=== PATIENT | female | born 1995 | race Hispanic/Latino ===

== ENCOUNTER 2018-10-25 20:46 | Emergency (ER) | payer OTHER ==
--- NOTE | 2018-10-25 21:16 | ED PDOC ---
HPI: Psych/Substance Abuse Chief Complaint (Nursing): Psychiatric Evaluation Chief Complaint (Provider): Psychiatric Evaluation History Per: Patient History/Exam Limitations: no limitations Additional Complaint(s): Patient is a 23 year old female who presents to the emergency department for psychiatric evaluation. She reports to have a history of depression and anxiety. Patient reports this past March she lost her 2 year old niece to brain cancer and this past April she lost her mother to suicide. She is currently on no medications and has no psychiatrist. Patient reports that today she was talking to her friend and stated she wanted to be with her mother. Her friend was concerned the patient was having suicidal ideation and called EMS. Patient denies current SI, HI and hallucinations. As per EMS, they found exchanges in the patient's phone that pertain to suicide. She further reports she has hurt herself in the past but has not done it within the last year. No physical complaints. PMD: none Past Medical History Reviewed: Historical Data, Nursing Documentation, Vital Signs Vital Signs: Last Vital Signs Temp 98.3 F 10/25/18 20:47 Pulse 100 H 10/25/18 20:47 Resp 16 10/25/18 20:47 BP 128/83 10/25/18 20:47 Pulse Ox 98 10/25/18 20:47 - Medical History PMH: Anxiety, Depression - Surgical History Surgical History: Appendectomy - Family History Family History: States: Unknown Family Hx - Allergies Allergies/Adverse Reactions: Allergies Allergy/AdvReac Type Severity Reaction Status Date / Time No Known Allergies Allergy Verified 10/25/18 20:50 Review of Systems ROS Statement: Except As Marked, All Systems Reviewed And Found Negative Psych: Negative for: Suicidal ideation (homicidal ideation), Other (hallucinations) Physical Exam - Reviewed Nursing Documentation Reviewed: Yes Vital Signs Reviewed: Yes - Physical Exam Comments: GENERAL APPEARANCE: Patient is awake, alert, oriented x 3, crying. SKIN: Warm, dry; (-) cyanosis ENMT: Mucous membranes moist. Airway patent: (-) stridor. NECK: Supple, FROM HEART AND CARDIOVASCULAR: (-) irregularity CHEST AND RESPIRATORY: (-) rales, (-) rhonchi, (-) wheezes; breath sounds equal. Respirations even and nonlabored. ABDOMEN: Soft, (-) distention, (-) tenderness, (-) guarding. NEURO AND PSYCH: Mental status as above. Affect: depressed. (-) facial asymmetry. Gait: steady. Speech: clear. - Laboratory Results Result Diagrams: 10/25/18 22:26 10/25/18 22:26 Urine POC: Negative - ECG O2 Sat by Pulse Oximetry: 98 (RA) Pulse Ox Interpretation: Normal Medical Decision Making Medical Decision Making: Time: 21:05 Impression: psychiatric evaluation Plan: --Crisis evaluation --Alcohol Serum 2145 Serum Alcohol: 102 Per crisis evaluation, patient to be admitted per Dr Billy for Depression. CBC, CMP, Upreg, U/A, and urine drug screen ordered. 2250 CBC and CMP grossly unremarkable. 2355 Upreg: negative U/A: (+) UTI. MAcrobid 100mg PO ordered. Patient is medically stable for psychiatric admission. Vitals stable. Scribe Attestation: Documented by Ventura Lazar, acting as a scribe for Tg Dyer Provider Scribe Attestation: All medical record entries made by the Scribe were at my direction and personally dictated by me. I have reviewed the chart and agree that the record accurately reflects my personal performance of the history, physical exam, medical decision making, and the department course for this patient. I have also personally directed, reviewed, and agree with the discharge instructions and disposition. Disposition - Clinical Impression Clinical Impression: Depression, UTI (urinary tract infection) - Patient ED Disposition Is Patient to be Admitted: Yes Counseled Patient/Family Regarding: Studies Performed, Diagnosis - Disposition Disposition Time: 23:55 Condition: STABLE - Pt Status Changed To: Hospital Disposition Of: Inpatient - Admit Certification Admit to Inpatient:: After my assessment, the patient will require hospitalization for at least two midnights. This is because of the severity of symptoms shown, intensity of services needed, and/or the medical risk in this patient being treated as an outpatient. - POA Present On Arrival: None Results - Lab Results Lab Results: 10/25/18 10/25/18 10/25/18 22:26 22:26 21:19 WBC 7.8 RBC 4.25 Hgb 12.8 Hct 38.4 MCV 90.4 MCH 30.0 MCHC 33.2 RDW 12.2 Plt Count 276 MPV 7.1 L Neut % (Auto) 56.8 Lymph % (Auto) 35.4 [place] % (Auto) 6.0 Eos % (Auto) 0.9 Baso % (Auto) 0.9 Neut # (Auto) 4.4 Lymph # (Auto) 2.8 [place] # (Auto) 0.5 Eos # (Auto) 0.1 Baso # (Auto) 0.1 Sodium 143 Potassium 3.8 Chloride 109 H Carbon Dioxide 23 Anion Gap 15 BUN 8 Creatinine 0.8 Est GFR ( Amer) > 60 Est GFR (Non-Af Amer) > 60 Random Glucose 145 H Calcium 8.9 Total Bilirubin 0.1 L AST 27 ALT 19 Alkaline Phosphatase 42 Total Protein 6.9 Albumin 3.9 Globulin 3.1 Albumin/Globulin Ratio 1.3 Alcohol, Quantitative 102 H
[2018-10-25 22:31] LABS: BASO # 0.1 K/uL (0.0-0.2); BASO % 0.9 % (0.0-2.0); EOS # 0.1 K/uL (0.0-0.7); EOS % 0.9 % (0.0-4.0); HEMOGLOBIN 12.8 g/dL (12.0-16.0); LYMPH # 2.8 K/uL (1.0-4.3); LYMPH % 35.4 % (20.0-40.0); MEAN CELL VOLUME 90.4 fl (81.0-99.0); MEAN CORPUSCULAR HGB CONC 33.2 g/dL (33.0-37.0); MEAN PLATELET VOLUME 7.1 fl (7.2-11.7); MONO # 0.5 K/uL (0.0-0.8); NEUT # 4.4 K/uL (1.8-7.0); NEUT % 56.8 % (50.0-75.0); NRBC % 0.1 % (0.0-0.0); RBC 4.25 Mil/uL (3.80-5.20); RED CELL DISTRIBUTION WIDTH 12.2 % (11.5-14.5); WHITE BLOOD COUNT 7.8 K/uL (4.8-10.8)
[2018-10-25 22:38] LABS: ALB/GLOB RATIO 1.3 (1.0-2.1); ALBUMIN 3.9 g/dL (3.5-5.0); ALT/SGPT 19 U/L (9-52); AST/SGOT 27 U/L (14-36); BLOOD UREA NITROGEN 8 mg/dl (7-17); CALCIUM 8.9 mg/dL (8.4-10.2); GFR NON-AFRICAN AMERICAN > 60
[2018-10-25 23:47] LABS: SQUAMOUS EPITHIAL 9 /hpf (0-5); URINE BACTERIA OCC (<OCC); URINE BILIRUBIN NEGATIVE (NEGATIVE); URINE BLOOD LARGE (NEGATIVE); URINE CLARITY CLOUDY (Clear); URINE COLOR YELLOW (YELLOW); URINE GLUCOSE (UA) NEG (NEGATIVE); URINE LEUKOCYTE ESTERASE SMALL Leu/uL (Negative); URINE PROTEIN 30 mg/dL (NEGATIVE); URINE UROBILINOGEN 0.2-1.0 mg/dL (0.2-1.0)
[2018-10-26 00:12] LABS: BARBITURATES, UR NEGATIVE (NEGATIVE); BENZODIAZEPINES, UR NEGATIVE (NEGATIVE); OPIATES, UR NEGATIVE (NEGATIVE); PHENCYCLIDINE, UR NEGATIVE (NEGATIVE)
--- NOTE | 2018-10-26 07:21 | ED PDOC ---
- Laboratory Results Result Diagrams: 10/25/18 22:26 10/25/18 22:26 Urine POC: Negative - ECG O2 Sat by Pulse Oximetry: 100 Medical Decision Making Medical Decision Makin:00 Patient is signed out to me by Paramjit Winchester MD pending [facility] [place]. Scribe Attestation: Documented byTg Pittman, acting as a scribe for Charlotte Roberto MD. Provider Scribe Attestation: All medical record entries made by the Scribe were at my direction and personally dictated by me. I have reviewed the chart and agree that the record accurately reflects my personal performance of the history, physical exam, medical decision making, and the department course for this patient. I have also personally directed, reviewed, and agree with the discharge instructions and disposition. Disposition Doctor Will See Patient In The: Office Counseled Patient/Family Regarding: Diagnosis, Need For Followup - Clinical Impression Clinical Impression: Depression, UTI (urinary tract infection) - POA Present On Arrival: None - Disposition Disposition: Routine/Home Disposition Time: 12:00 Condition: IMPROVED Instructions: Asymptomatic Bacteriuria Forms: Your Policy Manager (Ukrainian)
--- NOTE | 2018-10-26 08:58 | RAD ---
Date of service: 10/26/2018 HISTORY: psych COMPARISON: No prior. FINDINGS: LUNGS: No active pulmonary disease. PLEURA: No significant pleural effusion identified, no pneumothorax apparent. CARDIOVASCULAR: No aortic atherosclerotic calcification present. Normal cardiac size. No pulmonary vascular congestion. OSSEOUS STRUCTURES: No significant abnormalities. VISUALIZED UPPER ABDOMEN: Normal. OTHER FINDINGS: None. IMPRESSION: No acute cardiopulmonary disease appreciated.
--- NOTE | 2018-10-26 16:55 | CP.PCM.CON ---
History of Present Illness - History of Present Illness History of Present Illness: This is a 23 year old female with h/o depression and and one suicidal attempt in past and admitted because of worsening depression and suicidal ideation stemming from suicidal of cousin from cancer and of mother from suicide.pt was offered voluntary admission but pt has refused and remains suicidal risk and referred to [facility] for involuntary admission and accepted. Past Patient History - Past Social History Smoking Status: Never Smoked - CARDIAC Hx Cardiac Disorders: No Hx Hypertension: No - PULMONARY Hx Tuberculosis: No - NEUROLOGICAL HX Cerebrovascular Accident: No Hx Seizures: No - HEMATOLOGICAL/ONCOLOGICAL Hx Cancer: No Hx Human Immunodeficiency Virus (HIV): No - GENITOURINARY/GYNECOLOGICAL Hx Sexually Transmitted Disorders: No - PSYCHIATRIC Hx Anxiety: Yes Hx Depression: Yes - SURGICAL HISTORY Hx Appendectomy: Yes - ANESTHESIA Hx Anesthesia: Yes Hx Anesthesia Reactions: No Meds Allergies/Adverse Reactions: Allergies Allergy/AdvReac Type Severity Reaction Status Date / Time No Known Allergies Allergy Verified 10/25/18 20:50 Results - Vital Signs Recent Vital Signs: Last Vital Signs Temp 98.5 F 10/26/18 12:03 Pulse 71 10/26/18 12:03 Resp 18 10/26/18 12:03 BP 114/63 10/26/18 12:03 Pulse Ox 100 10/26/18 14:46 - Labs Result Diagrams: 10/25/18 22:26 10/25/18 22:26 Labs: Laboratory Results - last 24 hr 10/25/18 10/25/18 10/25/18 21:19 22:26 22:26 WBC 7.8 RBC 4.25 Hgb 12.8 Hct 38.4 MCV 90.4 MCH 30.0 MCHC 33.2 RDW 12.2 Plt Count 276 MPV 7.1 L Neut % (Auto) 56.8 Lymph % (Auto) 35.4 [place] % (Auto) 6.0 Eos % (Auto) 0.9 Baso % (Auto) 0.9 Neut # (Auto) 4.4 Lymph # (Auto) 2.8 [place] # (Auto) 0.5 Eos # (Auto) 0.1 Baso # (Auto) 0.1 Sodium 143 Potassium 3.8 Chloride 109 H Carbon Dioxide 23 Anion Gap 15 BUN 8 Creatinine 0.8 Est GFR ( Amer) > 60 Est GFR (Non-Af Amer) > 60 Random Glucose 145 H Calcium 8.9 Total Bilirubin 0.1 L AST 27 ALT 19 Alkaline Phosphatase 42 Total Protein 6.9 Albumin 3.9 Globulin 3.1 Albumin/Globulin Ratio 1.3 Urine Color Urine Clarity Urine pH Ur Specific Pyrites Urine Protein Urine Glucose (UA) Urine Ketones Urine Blood Urine Nitrate Urine Bilirubin Urine Urobilinogen Ur Leukocyte Esterase Urine RBC (Auto) Urine Microscopic WBC Ur Squamous Epith Cells Urine Bacteria Urine Opiates Screen Urine Methadone Screen Ur Barbiturates Screen Ur Phencyclidine Scrn Ur Amphetamines Screen U Benzodiazepines Scrn U Oth Cocaine Metabols U Cannabinoids Screen Alcohol, Quantitative 102 H 10/25/18 10/25/18 23:35 23:35 WBC RBC Hgb Hct MCV MCH MCHC RDW Plt Count MPV Neut % (Auto) Lymph % (Auto) [place] % (Auto) Eos % (Auto) Baso % (Auto) Neut # (Auto) Lymph # (Auto) [place] # (Auto) Eos # (Auto) Baso # (Auto) Sodium Potassium Chloride Carbon Dioxide Anion Gap BUN Creatinine Est GFR ( Amer) Est GFR (Non-Af Amer) Random Glucose Calcium Total Bilirubin AST ALT Alkaline Phosphatase Total Protein Albumin Globulin Albumin/Globulin Ratio Urine Color Yellow Urine Clarity Cloudy Urine pH 6.0 Ur Specific Pyrites 1.018 Urine Protein 30 Urine Glucose (UA) Neg Urine Ketones Negative Urine Blood Large Urine Nitrate Negative Urine Bilirubin Negative Urine Urobilinogen 0.2-1.0 Ur Leukocyte Esterase Small Urine RBC (Auto) 175 H Urine Microscopic WBC 61 H Ur Squamous Epith Cells 9 H Urine Bacteria Occ H Urine Opiates Screen Negative Urine Methadone Screen Negative Ur Barbiturates Screen Negative Ur Phencyclidine Scrn Negative Ur Amphetamines Screen Negative U Benzodiazepines Scrn Negative U Oth Cocaine Metabols Negative U Cannabinoids Screen Negative Alcohol, Quantitative
[2018-10-26 18:08] VITALS: RESP 16
--- NOTE | 2018-10-26 18:55 | CARD ---
APPROVED REPORT Date of service: 10/26/2018 EKG Measurement Heart [id number] <Conclusion> Normal sinus rhythm Normal Electrocardiogram
[2018-10-26 20:00] VITALS: BP 108/77; PULSE 88; TEMP 98.1; O2SAT 100
== END 2018-10-26 19:57 | disposition short-term general hospital (02) ==
LOC: H.ER 20:46 → EDSEX 20:46 → H.ERHOLD 23:13 → UNDOADMIN 23:13 → H.ER 10-26 19:57
DX: F32.9 Major depressive disorder, single episode, unspecified (principal); N39.0 Urinary tract infection, site not specified; Z00.8 Encounter for other general examination